=== PATIENT | female | born 1950 | race Caucasian/White ===

== ENCOUNTER → 2021-04-18 | Outpatient (CLI) | payer MEDICARE ==
[2021-04-18 14:40] LABS: ALANINE AMINOTRANSFERASE 31 U/L (12-78); ALBUMIN 3.5 g/dL (3.4-5.0); ANION GAP 6 mmol/L (5-15); CHLORIDE 107 mmol/L (98-107); CREATININE 0.85 mg/dL (0.55-1.02)
[2021-04-18 14:42] LABS: ALKALINE PHOSPHATASE 105 U/L (45-117); BILIRUBIN,TOTAL 0.7 mg/dL (0.2-1.0); TOTAL PROTEIN 7.8 g/dL (6.4-8.2)
== END | disposition home or self-care (01) ==
LOC: LAB 14:12
PROVIDERS: ATTEND Internal Medicine
DX: M80.08XS Age-related osteoporosis with current pathological fracture, vertebra(e), sequela (principal)
CPT/HCPCS: 36415; 80053